=== PATIENT | male | born 1950 | race Caucasian/White ===

== ENCOUNTER 2023-10-13 09:25 | Emergency (ER) | payer MEDICARE, OTHER, SELFPAY ==
[2023-10-13 09:36] VITALS: BP 149/89
[2023-10-13 10:16] LABS: % Basophils 1.4 % (0-2); % Eosinophils 2.7 % (0-6); % Lymphocytes 27.6 % (20.5-51.1); % Monocytes 8.6 % (1.7-9.3); % Neutrophils 58.7 % (42.2-75.2); Absolute Basophils 0.1 10^3/uL (0-0.2); Absolute Eosinophils 0.2 10^3/uL (0-0.7); Absolute Immature Granulocytes 0.1 10^3/uL (0-0.05); Absolute Lymphocytes 1.9 10^3/uL (1.2-3.4); Absolute Monocytes 0.6 10^3/uL (0.1-0.6); Absolute Neutrophils 4.1 10^3/uL (1.4-6.5); Hematocrit 38.8 % (39.0-52.0); Hemoglobin 14.1 g/dL (13.0-18.0); Mean Corp Hgb Conc. 36.3 g/dL (33.0-37.0); Mean Corpuscular Hgb 31.8 pg (27.0-31.0); Mean Corpuscular Volume 87.4 fL (80.0-94.0); Mean Platelet Volume 8.1 fL (7.4-10.4); Nucleated Red Blood Cells % 0 % (-); Platelet Count 215 10^3/uL (130-400); Red Blood Cell Count 4.44 10^6/uL (4.70-6.10)
[2023-10-13 10:26] LABS: ALT (SGPT) 32 U/L (0-50); AST (SGOT) 30 U/L (17-59); Albumin 4.3 g/dl (3.5-5.0); Alkaline Phosphatase 88 U/L (38-126); Blood Urea Nitrogen 15 mg/dl (9-20); Calcium 9.1 mg/dl (8.4-10.2); Carbon Dioxide 24 mmol/L (22-30); Chloride 107 mmol/L (98-107); Glucose 112 mg/dl (70-99); Potassium 3.8 mmol/L (3.5-5.1); Sodium 136 mmol/L (135-145); Total Bilirubin 1.1 mg/dl (0.2-1.3); Total Protein 6.6 g/dl (6.3-8.2); eGFR > 60.00
[2023-10-13 10:33] LABS: Troponin I < 0.012 ng/ml
--- NOTE | 2023-10-13 10:42 | ED.GENMED ---
History of Present Illness
General
Chief Complaint: Chest Pain
Source: patient
Time Seen by Provider: 10/13/23 10:18
Travel History
Have you had any contact with someone who has COVID-19?: No
Do you have any symptoms of coronavirus? Fever > 100 degrees, chills, cough, shortness of breath, sore throat, loss of taste or smell, muscle aches, or headache?: No
History of Present Illness
History of Present Illness:
73-year-old male presents to the emergency room complaining of chest pain. Pain is located in the anterior chest as well as having some pain in the left arm. Patient states he does have chronic pain from neck and back issues. He is used to having
pain that radiates down his right arm to his neck issues. However over the past week he has been experiencing intermittent discomfort in the anterior chest which is somewhat different for him. Today the discomfort was quite significant. It became
severe at around 830. After did not go away over an hour he decided to come for evaluation. Pain improved while he was in the waiting room but seems to be increasing in intensity again at the time my evaluation. No associated nausea, diaphoresis
or shortness of breath. He does have a headache.
Past History
Past History
ED Past Medical History: CAD, HTN, Hypercholesterolemia and Other (OA)
ED Past Surgical History: Cardiac
Social History
Tobacco: Non-smoker
Alcohol: None
Personal:
Living: with family
Employment: Retired
Family History
Family History: Early CAD and CAD
Phy Exam
Physical Exam
Physical Exam:
General: Awake, Alert, Oriented X3. Appears somewhat uncomfortable
Vitals: unremarkable
Head: Atraumatic
Eyes: Pupils equal, EOMI
Throat: Airway intact, no exudates
Neck: Trachea midline
Lungs: Clear and equal b/l
Heart: Regular rate, no murmurs
Abd: Soft, Nontender, No pulsatile mass
Neuro: Nonfocal
Skin: Warm, dry, no rash
Extremities: pulses equal b/l, no edema
Scores
Heart Score for Chest Pain Patients
STEMI patient?: No
History: Moderately Suspicious
ECG: Normal
Age: >/= 65 years
Risk Factors: >/= 3 Risk Factors or History of CAD
Troponin: </= Normal Limit
Heart Score for Chest Pain Patients: 5
Heart Score Risk: 20.3% MACE over next 6 weeks
Course
Orders/Labs/Results
Orders:
Orders
10/13/23 09:26
Electrocardiogram (*1) Urgent
Reason for Study: Chest Pain
10/13/23 09:27
EKG- Treatment ONCE
10/13/23 09:59
Complete Blood Count/With Diff Urgent
Comprehensive Metabolic Panel Urgent
Troponin I Urgent
10/13/23 10:31
Electrocardiogram (*1) Urgent
Reason for Study: Chest Pain
EKG- Treatment ONCE
10/13/23 10:40
Acetaminophen [Tylenol] 1,000 mg PO NOW STA
10/13/23 11:43
Troponin I Urgent
10/13/23 13:13
CT Chest Pe Study Urgent
Comment:
Reason For Exam: chest pain
Ketorolac [Toradol] 15 mg IV NOW STA
Abnormal Lab Results
10/13/23
09:59
RBC 4.44 L 10^6/uL
(4.70-6.10)
Hct 38.8 L %
(39.0-52.0)
MCH 31.8 H pg
(27.0-31.0)
Abs Immat Gran (auto) 0.1 H 10^3/uL
(0-0.05)
Immature Gran % 1.0 H %
(0-0.5)
Glucose 112 H mg/dl
(70-99)
10/13/23 09:59
10/13/23 09:59
Vital Signs
Initial and Last Documented VS:
Initial Vital Signs
Pulse Resp BP Pulse Ox
57 20 149/89 95
10/13/23 09:36 10/13/23 09:36 10/13/23 09:36 10/13/23 09:36
Last Documented Vital Signs
Pulse Resp BP Pulse Ox
57 15 168/88 94
10/13/23 13:45 10/13/23 13:45 10/13/23 12:00 10/13/23 13:45
*Radiology
Radiology exam reviewed: radiology read reviewed
*Pulse Oximetry
Patient hypoxic: no
*EKG
Interpreted by ED Provider?: Yes
Interpretation: abnormal
Heart Rate: 58
Rate: bradycardiac
Rhythm: sinus
Interval: first degree heart block
QRS Pattern: normal QRS
Ischemia: no ischemia
*Assembling Fabricator Interpretation
Rate: bradycardiac
Rhythm: sinus
*Critical Care Note
Total Time (30-74mins, 75-104mins- exclusive of procedures): Not Applicable
ED Attending Note
-
Portions of this chart may have been created with voice recognition software.� Occasional wrong word or��sound alike� substitutions may have occurred due to the inherent limitations of voice recognition software.
Discharge Plan
Departure
Patient Disposition: Home (Routine Discharge)
Date of Disposition: 10/13/23
Time of Disposition: 15:34
Patient with high blood pressure during this ER visit?: Yes
Condition: Good
Discharge Problem:
Chest pain
Instructions: Chest Pain DCA Follow Up, BLOOD PRESSURE
Prescriptions:
No Action
nitroglycerin 0.4 MG tablet, sublingual
0.4 mg sublingual [id number] PRN (Reason: chest pain )
aspirin 81 MG tablet,delayed release (DR/EC)
81 mg PO HS
Hold Instructions: Resume on 02/09/23.
multivitamin with folic acid [Tab-A-Chel] 1 TABLET tablet
1 tab PO DAILY
sennosides [senna] 8.6 mg Tablet
34.4 mg PO DAILY
cetirizine [Zyrtec] 10 mg Tablet
10 mg PO HS
pantoprazole [Protonix] 40 mg Tablet,Delayed Release (Dr/Ec)
40 mg PO DAILY
losartan 25 mg Tablet
25 mg PO DAILY
clopidogrel 75 MG tablet
75 mg PO DAILY
Hold Instructions: Resume on 01/15/23.
atorvastatin 80 mg Tablet
80 mg PO QPM Qty: 30 11RF
carvedilol 6.25 mg Tablet
6.25 mg PO BID Qty: 60 11RF
ipratropium bromide 42 mcg (0.06 %) [place],Non-Aerosol
2 spray INTRANASAL BID
Bio Complete 3
2 tab PO PC
Super Digestive Ensyme
2 tab PO PC
mupirocin 2 % ointment
1 applic topical BID Qty: 1 0RF
tamsulosin 0.4 mg Capsule
0.4 mg PO HS
isosorbide mononitrate 60 mg tablet extended release 24 hr
30 mg PO DAILY
aspirin 325 mg Tablet
325 mg PO DAILY Qty: 1 0RF
docusate sodium 100 mg Capsule
100 mg PO BID Qty: 1 0RF
acetaminophen 325 mg Tablet
650 mg PO Q4HWA Qty: 2 0RF
magnesium hydroxide 400 mg/5 mL Suspension
30 ml PO DAILYPRN PRN (Reason: constipation) Qty: 30 0RF
oxycodone 5 mg tablet
5 - 10 mg PO Q6HPRN PRN (Reason: 1 tab moderate-2 tabs severe pain) Qty: 30 0RF
Rx Instructions:
Dx surgery
ongoing therapy
Post-op use
prednisone 10 mg tablet
40 mg PO TAPER Qty: 20 0RF
Rx Instructions:
4 TABS X 2 DAYS, 3 TABS X 2 DAYS, 2 TABS X 2 DAYS, 1 TAB X 2 DAYS, THEN STOP
baclofen 10 mg tablet
10 mg PO BID Qty: 20 0RF
escitalopram oxalate 20 MG tablet
20 mg PO DAILY
Patient Comments:
---said its not covered by insurance but needs to be on it,
Referrals:
Rasta Fraire MD [Family Provider] -
Interventions
Interventions:
*Risk Screen - Suicide Last Done: 10/13/23 09:36
*General Assessment Last Done: 10/13/23 09:36
*Neglect/Abuse Screening Last Done: 10/13/23 09:36
*ED COVID-19 Vaccine History Last Done: 10/13/23 11:03
ED- Cardiac Assessment Last Done: 10/13/23 11:02
[2023-10-13 10:46] VITALS: BP 150/96
[2023-10-13] MEDS: TYLENOL 1000 MG PO (10:58)
[2023-10-13 11:00] VITALS: BP 164/107
[2023-10-13 11:43] VITALS: BP 154/80
[2023-10-13 12:00] VITALS: BP 168/88
[2023-10-13 12:16] LABS: Troponin I < 0.012 ng/ml
[2023-10-13] MEDS: TORADOL 15 MG IV (13:24)
== END 2023-10-13 16:03 | disposition home or self-care (01) ==
LOC: EMR 09:25
PROVIDERS: Emergency Medicine; EMERGENCY PHYSICIAN Emergency Medicine; FAMILY PHYSICIAN Family Medicine
DX: R07.89 Other chest pain (principal); I10 Essential (primary) hypertension
CPT/HCPCS: 99285; 96374; 71275; 80053; 84484; 85025; 93005; Q9967

== ENCOUNTER 2023-11-27 11:58 | Emergency (ER) | payer MEDICARE, OTHER, SELFPAY ==
[2023-11-27 12:13] VITALS: BP 122/69
--- NOTE | 2023-11-27 13:33 | ED.GENMED ---
History of Present Illness
<BRITTANY Zapata - Last Filed: 11/27/23 21:03>
General
Chief Complaint: Fall
Source: patient
Exam Limitations: none
Time Seen by Provider: 11/27/23 12:47
Travel History
Have you had any contact with someone who has COVID-19?: No
Do you have any symptoms of coronavirus? Fever > 100 degrees, chills, cough, shortness of breath, sore throat, loss of taste or smell, muscle aches, or headache?: No
History of Present Illness
History of Present Illness:
73 yr. old male presents ER for evaluation of head injury. Patient reports around 10 AM he was walking in the basement tripped and fell hitting his head on concrete. He hit the right side of his head on concrete floor. He denies loss of
consciousness. He has been on Plavix but took last dose yesterday and held his dose today for upcoming procedure .
he has had a headache since injury has blurry vision from his right eye and feels off. He does complain of mild abrasions to his right forearm and right leg. His last tetanus was about 10 years ago. He does complain of discomfort to left wrist
and left shoulder.
Past History
<BRITTANY Zapata - Last Filed: 11/27/23 21:03>
Past History
ED Past Medical History: CAD, HTN, Hypercholesterolemia and Other (OA)
ED Past Surgical History: Cardiac
Social History
Tobacco: Non-smoker
Alcohol: None
Personal:
Living: with family
Employment: Retired
Family History
Family History: Early CAD and CAD
Review of Systems
<BRITTANY Zapata - Last Filed: 11/27/23 21:03>
Review of Systems
Allergies reviewed?: Yes
Other source history: family
All Other Systems: ROS reviewed and negative except as documented in HPI and ROS
Constitutional: Reports no symptoms
Respiratory: Reports no symptoms
Cardiac: Reports no symptoms
ABD/GI: Reports no symptoms
: Reports no symptoms
Musculoskeletal: Reports neck pain and other (left wrist /shoulder injury)
Skin: Reports no symptoms
Neurological: Reports no symptoms
Hematologic/Lymphatic: Reports no symptoms
Psychiatric: Reports no symptoms
Phy Exam
<BRITTANY Zapata - Last Filed: 11/27/23 21:03>
General Physical Exam
General Presentation: no apparent distress
General age: appears stated age
General Skin: warm and dry
General Habitus: normal
General Mental: alert
Eye Exam
Eye Exam: PERRL and EOMI
Eye Exam General: PERRL: bilateral and EOM intact: bilateral
Pupil Exam: Bilateral: round and reactive
Neurological Exam
Neurological Exam: alert and oriented x3
Musculoskeletal Exam
Musculoskeletal Exam: other (Small amount of erythema to forehead above right eye area no hematoma no bony cervical spine tenderness mildly tender to left anterior shoulder left wrist)
Skin Exam
Skin Exam: normal color, warm/dry and other (Small skin tear abrasion to right anterior tib-fib and right forearm)
Course
<BRITTANY Zapata - Last Filed: 11/27/23 21:03>
Orders/Labs/Results
Orders:
Orders
11/27/23 12:16
CT Cervical Spine W/o Iv Contr Urgent
Comment:
Reason For Exam: head injury, headache, visual changes
CT Head W/o Iv Contrast Urgent
Comment:
Reason For Exam: head injury, headache, visual changes
11/27/23 13:38
Wrist, Left 3 Views CR [CR Wrist - Left Min 3 Views] Urgent
Comment:
Reason For Exam: pain/trauma
11/27/23 13:39
Shoulder, Left, Trauma CR [CR Shoulder, Trauma - Left] Urgent
Comment:
Reason For Exam: trauma
11/27/23 13:41
Tetanus/Diphth/Acelpertussis [Adacel] 0.5 ml IM .ONCE ONE
Vital Signs
Initial and Last Documented VS:
Initial Vital Signs
Temp Pulse Resp BP Pulse Ox
97.9 F 56 18 122/69 95
11/27/23 12:13 11/27/23 12:13 11/27/23 12:13 11/27/23 12:13 11/27/23 12:13
Last Documented Vital Signs
Temp Pulse Resp BP Pulse Ox
97.9 F 60 18 155/78 96
11/27/23 12:13 11/27/23 17:13 11/27/23 17:13 11/27/23 17:13 11/27/23 17:13
Water Well Driller consulted with Physician
Water Well Driller consulted with physician?: Yes
Name of Physician Consulted: Rohan
<Min Madrigal, DO - Last Filed: 11/27/23 16:23>
Orders/Labs/Results
Orders:
Orders
11/27/23 12:16
CT Cervical Spine W/o Iv Contr Urgent
Comment:
Reason For Exam: head injury, headache, visual changes
CT Head W/o Iv Contrast Urgent
Comment:
Reason For Exam: head injury, headache, visual changes
11/27/23 13:38
Wrist, Left 3 Views CR [CR Wrist - Left Min 3 Views] Urgent
Comment:
Reason For Exam: pain/trauma
11/27/23 13:39
Shoulder, Left, Trauma CR [CR Shoulder, Trauma - Left] Urgent
Comment:
Reason For Exam: trauma
11/27/23 13:41
Tetanus/Diphth/Acelpertussis [Adacel] 0.5 ml IM .ONCE ONE
Vital Signs
Initial and Last Documented VS:
Initial Vital Signs
Temp Pulse Resp BP Pulse Ox
97.9 F 56 18 122/69 95
11/27/23 12:13 11/27/23 12:13 11/27/23 12:13 11/27/23 12:13 11/27/23 12:13
Last Documented Vital Signs
Temp Pulse Resp BP Pulse Ox
97.9 F 60 18 155/78 96
11/27/23 12:13 11/27/23 17:13 11/27/23 17:13 11/27/23 17:13 11/27/23 17:13
<BRITTANY Zapata - Last Filed: 11/27/23 21:03>
MDM/Problems Addressed
Differential Diagnosis Includes:
not limited to: head injury , intracranial hemorrhage shoulder sprain versus fracture abrasions
MDM/Problems Addressed:
73 yr old male presented to the ED for eval after a fall. Patient did hit his head was on Plavix but stopped it today because of the upcoming procedure. Patient presents to the ER complaining of feeling slightly foggy headache and blurry vision
from the center of his right eye. Patient presents awake alert no acute distress normal neurological exam. His visual acuity is normal there is no corneal abrasions or foreign body however he does describe still seeing slightly blurry vision from
the center vision of his right eye. He has no entrapment pupils equal round and reactive. Visual acuity left eye 20/25 right eye 20/25 both eyes 20/20. He had CAT scans done of head and cervical spine which were negative. He complained mild
shoulder and wrist discomfort which was negative. Patient examined by ED physician I spoke with Dr. Breanna Henriquez ophthalmology who states that send her vision may be related to macula patient will need outpatient follow-up with ophthalmology
does not need to be emergent. If he is unable to get in with his ophthalmology office next week patient is able to be seen by Dr. Henriquez patient given information.
Patient has been monitored here for quite some time in the ER and feels that this is improving however. He is nontoxic. He does ask for a prescription for lidocaine patches will send to pharmacy discussed close outpatient follow-up with his
public transit bus driver for ophthalmology given on referral and his family doctor
<BRITTANY Zapata - Last Filed: 11/27/23 21:03>
*Radiology
Radiology exam reviewed: radiology read reviewed
*Pulse Oximetry
Patient hypoxic: no
*Critical Care Note
Total Time (30-74mins, 75-104mins- exclusive of procedures): Not Applicable
ED Attending Note
<BRITTANY Zapata - Last Filed: 11/27/23 21:03>
-
Portions of this chart may have been created with voice recognition software.� Occasional wrong word or��sound alike� substitutions may have occurred due to the inherent limitations of voice recognition software.
<Min Madrigal DO - Last Filed: 11/27/23 16:23>
ED Attending Note
Patient seen and examined by attending physician: Yes
I performed the substantive portion of visit, reviewed & personally made and approve the management plan that is documented in note by myself or ANIYA.: Yes
ED Attending Note:
I have seen and evaluated the patient with a [id number] encounter. I have spoken to the advance practicer provider and involved in the medical history, the physical exam, medical decision making.
Evaluation and management service: agree unless noted differently below.
Results interpretation: agree unless noted differently below.
Focused HPI: 73-year-old male presenting with a trip and fall. Patient did land on his face. He is having blurry vision in his right eye. he describes the blurry vision as if wax was over his eye. he denies pain
Physical exam: Sitting in bed comfortably. Pupils equal reactive. No pain with eye movement or with pupil constriction. No field cut
Medical Decision Making: Will have BRIDGE MANAGER discussed case with ophthalmology. We discussed possibility of vitreous hemorrhage versus retinal detachment
Discharge Plan
Departure
Patient Disposition: Home (Routine Discharge)
Date of Disposition: 11/27/23
Time of Disposition: 16:39
Patient with high blood pressure during this ER visit?: No
Covid-19: Not Applicable
Discharge Problem:
Head injury, Visual disturbance
Instructions: Head Injury in Adults (DC)
Prescriptions:
New
lidocaine 5 % adhesive patch,medicated
1 patch topical DAILY PRN (Reason: pain') Qty: 30 0RF
No Action
nitroglycerin 0.4 MG tablet, sublingual
0.4 mg sublingual [id number] PRN (Reason: chest pain )
aspirin 81 MG tablet,delayed release (DR/EC)
81 mg PO HS
Hold Instructions: Resume on 02/09/23.
multivitamin with folic acid [Tab-A-Chel] 1 TABLET tablet
1 tab PO DAILY
sennosides [senna] 8.6 mg Tablet
34.4 mg PO DAILY
cetirizine [Zyrtec] 10 mg Tablet
10 mg PO HS
pantoprazole [Protonix] 40 mg Tablet,Delayed Release (Dr/Ec)
40 mg PO DAILY
losartan 25 mg Tablet
25 mg PO DAILY
clopidogrel 75 MG tablet
75 mg PO DAILY
Hold Instructions: Resume on 01/15/23.
atorvastatin 80 mg Tablet
80 mg PO QPM Qty: 30 11RF
carvedilol 6.25 mg Tablet
6.25 mg PO BID Qty: 60 11RF
ipratropium bromide 42 mcg (0.06 %) [place],Non-Aerosol
2 spray INTRANASAL BID
Bio Complete 3
2 tab PO PC
Super Digestive Ensyme
2 tab PO PC
mupirocin 2 % ointment
1 applic topical BID Qty: 1 0RF
tamsulosin 0.4 mg Capsule
0.4 mg PO HS
isosorbide mononitrate 60 mg tablet extended release 24 hr
30 mg PO DAILY
aspirin 325 mg Tablet
325 mg PO DAILY Qty: 1 0RF
docusate sodium 100 mg Capsule
100 mg PO BID Qty: 1 0RF
acetaminophen 325 mg Tablet
650 mg PO Q4HWA Qty: 2 0RF
magnesium hydroxide 400 mg/5 mL Suspension
30 ml PO DAILYPRN PRN (Reason: constipation) Qty: 30 0RF
oxycodone 5 mg tablet
5 - 10 mg PO Q6HPRN PRN (Reason: 1 tab moderate-2 tabs severe pain) Qty: 30 0RF
Rx Instructions:
Dx surgery
ongoing therapy
Post-op use
prednisone 10 mg tablet
40 mg PO TAPER Qty: 20 0RF
Rx Instructions:
4 TABS X 2 DAYS, 3 TABS X 2 DAYS, 2 TABS X 2 DAYS, 1 TAB X 2 DAYS, THEN STOP
baclofen 10 mg tablet
10 mg PO BID Qty: 20 0RF
escitalopram oxalate 20 MG tablet
20 mg PO DAILY
Patient Comments:
---said its not covered by insurance but needs to be on it,
Referrals:
Breanna Henriquez MD [Active] -
Lucía Owens MD [Family Provider] -
Activity Restrictions/Additional Instructions:
As discussed follow-up with your family doctor the next several days for reevaluation of your symptoms. May take Tylenol for, headaches. A prescription for lidocaine patches was sent to your pharmacy. Also for a further evaluation of your visual
disturbance of your right eye please follow-up with your public transit bus driver. If you cannot follow-up with them next week please call our public transit bus driver on-call, see information above for phone number. It is important that you be seen by
ophthalmology next week. Return however to the ER if any worsening of symptoms.
Interventions
Interventions:
*ED COVID-19 Vaccine History Last Done: 11/27/23 12:13
*Nursing Disposition Last Done: 11/27/23 17:17
ED-Musculoskeletal Assessment Last Done: 11/27/23 15:00
ED- Neurological Assessment Last Done: 11/27/23 15:00
ED-Skin Assessment Last Done: 11/27/23 15:00
Discharge Date and Time
Discharge Date/Time: 11/27/23 17:18
Print Language: THAI
[2023-11-27] MEDS: ADACEL 0.5 ML IM (14:31)
[2023-11-27 17:13] VITALS: BP 155/78
== END 2023-11-27 17:18 | disposition home or self-care (01) ==
LOC: EMR 11:58
PROVIDERS: EMERGENCY PHYSICIAN Student in an Organized Health Care Education/Training Program; FAMILY PHYSICIAN Family Medicine
DX: S09.90XA Unspecified injury of head, initial encounter (principal); H53.8 Other visual disturbances; S50.811A Abrasion of right forearm, initial encounter; S80.811A Abrasion, right lower leg, initial encounter; M54.2 Cervicalgia; M25.532 Pain in left wrist; M25.512 Pain in left shoulder; G44.309 Post-traumatic headache, unspecified, not intractable; W01.0XXA Fall on same level from slipping, tripping and stumbling without subsequent striking against object, initial encounter; Y93.01 Activity, walking, marching and hiking; I25.10 Atherosclerotic heart disease of native coronary artery without angina pectoris; I10 Essential (primary) hypertension; E78.00 Pure hypercholesterolemia, unspecified; M19.90 Unspecified osteoarthritis, unspecified site; Z79.02 Long term (current) use of antithrombotics/antiplatelets; Z88.5 Allergy status to narcotic agent
CPT/HCPCS: 99284; 90471; 70450; 72125; 73030; 73110; 90715

== ENCOUNTER 2025-05-19 14:07 | Emergency (ER) | payer MEDICARE, OTHER, SELFPAY ==
[2025-05-19 14:18] VITALS: BP 132/86
[2025-05-19 14:53] LABS: Hematocrit 44.2 % (39.0-52.0); Hemoglobin 14.7 g/dL (13.0-18.0); Mean Corp Hgb Conc. 33.3 g/dL (33.0-37.0); Mean Corpuscular Volume 95.5 fL (80.0-94.0); Nucleated Red Blood Cells % 0 % (-); Platelet Count 181 10^3/uL (130-400); Red Cell Dist. Width 13.5 % (11.5-14.5)
[2025-05-19 15:08] LABS: ALT (SGPT) 41 U/L (0-50); AST (SGOT) 32 U/L (17-59); Albumin 4.5 g/dl (3.5-5.0); Alkaline Phosphatase 73 U/L (38-126); Blood Urea Nitrogen 21 mg/dl (9-20); Calcium 9.4 mg/dl (8.4-10.2); Carbon Dioxide 25 mmol/L (22-30); Chloride 107 mmol/L (98-107); Glucose 106 mg/dl (70-99); Potassium 4.3 mmol/L (3.5-5.1); Sodium 139 mmol/L (135-145); Total Protein 6.9 g/dl (6.3-8.2); eGFR > 60.00
--- NOTE | 2025-05-19 17:25 | ED.GENMED ---
History of Present Illness
General
Chief Complaint: Musculo-Skeletal Complaint
Source: patient
Exam Limitations: none
Time Seen by Provider: 05/19/25 16:58
History of Present Illness
History of Present Illness:
74-year-old male on aspirin and Plavix presents with new right foot drop over the past 2 to 3 days with throbbing headache and occasional nosebleeds. He also notes bruising in places that he does not recall having trauma. No chest pain or
shortness of breath. No fever. He does note about 2 weeks ago he had a circular rash on his right arm that was thought to be a fungal infection. He was prescribed a cream and it went away.
Past History
Past History
ED Past Medical History: CAD, HTN, Hypercholesterolemia and Other (OA)
ED Past Surgical History: Cardiac
Social History
Tobacco: Non-smoker
Alcohol: None
Personal:
Living: with family
Employment: Retired
Family History
Family History: Early CAD and CAD
Phy Exam
Physical Exam
Physical Exam:
General: Well-appearing male no acute respiratory distress
HEENT: Normal cephalic atraumatic face is symmetric bilateral nose cavities inspected and there is friable membranes over the septal wall bilaterally with evidence of bleeding recently bilaterally
Heart: Regular rate and rhythm
Lungs: Clear no wheeze
Neurologic exam: Alert and oriented x 3 face is symmetric no drift on exam. There is a foot drop on the right side.
Vascular: Dopplerable pulses to bilateral feet however the right leg does feel somewhat colder to the touch than the left
Extremities: No cyanosis
Course
Orders/Labs/Results
Orders:
Orders
05/19/25 14:34
Complete Blood Count/With Diff Urgent
Comprehensive Metabolic Panel Urgent
Lyme Progressive Urgent
Comment: ADD ON
05/19/25 17:24
Add On- LAB Urgent
Tests Added?: lyme progressive
05/19/25 17:25
CT Head W/o Iv Contrast Urgent
Comment:
Reason For Exam: headache, new right foot drop
05/19/25 17:28
Electrocardiogram (*1) Urgent
Reason for Study: TIA/Stroke
EKG- Treatment ONCE
05/19/25 18:23
Protime/PTT Urgent
05/19/25 19:54
Ortho Boot Right- Treatment ONCE
Short or tall?: Tall
05/19/25 21:19
Tetracaine HCl [Tetracaine 0.5% Ophthalmic Solution] 1 drop .ROUTE .STK-MED ONE
Abnormal Lab Results
05/19/25
14:34
RBC 4.63 L 10^6/uL
(4.70-6.10)
MCV 95.5 H fL
(80.0-94.0)
MCH 31.7 H pg
(27.0-31.0)
BUN 21 H mg/dl
(9-20)
Glucose 106 H mg/dl
(70-99)
05/19/25 14:34
05/19/25 14:34
Vital Signs
Initial and Last Documented VS:
Initial Vital Signs
Temp Pulse Resp BP Pulse Ox
97.6 F 62 18 132/86 97
05/19/25 14:18 05/19/25 14:18 05/19/25 14:18 05/19/25 14:18 05/19/25 14:18
Last Documented Vital Signs
Temp Pulse Resp BP Pulse Ox
97.6 F 62 16 132/86 97
05/19/25 14:18 05/19/25 18:15 05/19/25 18:15 05/19/25 14:18 05/19/25 18:15
MDM/Problems Addressed
Differential Diagnosis Includes:
Patient has complaints of new onset right foot drop over the past 2 to 3 days. There is also a throbbing headache. Consider peripheral neuropathy versus radiculopathy. Less likely Guillain-Kenny� or MS
Order CT of the head and check labs. Lyme test ordered. Patient denies any recent vaccines.
*Pulse Oximetry
SaO2: 97
Patient hypoxic: no
*Critical Care Note
Total Time (30-74mins, 75-104mins- exclusive of procedures): Not Applicable
Update Note
Update Note:
CT head negative. Discussed with emergency room attending saw the patient as well. Nothing emergent on today's workup he does have a foot drop however this is been ongoing for several days. Will place in a boot to help him ambulate and advise
follow-up with doctor for further evaluation
Patient did describe discomfort in his right eye. The pressure was checked with the Evens-Pen. Pressure averaged 15 mmHg in the right eye which is normal
ED Attending Note
-
Portions of this chart may have been created with voice recognition software.� Occasional wrong word or��sound alike� substitutions may have occurred due to the inherent limitations of voice recognition software.
Discharge Plan
Departure
Patient Disposition: Home (Routine Discharge)
Date of Disposition: 05/19/25
Time of Disposition: 21:12
Patient with high blood pressure during this ER visit?: No
Discharge Problem:
Foot drop
Instructions: Foot Drop
Prescriptions:
No Action
nitroglycerin 0.4 MG tablet, sublingual
0.4 mg sublingual [id number] PRN (Reason: chest pain )
aspirin 81 MG tablet,delayed release (DR/EC)
81 mg PO HS
multivitamin with folic acid [Tab-A-Chel] 1 TABLET tablet
1 tab PO DAILY
sennosides [senna] 8.6 mg Tablet
34.4 mg PO DAILY
cetirizine [Zyrtec] 10 mg Tablet
10 mg PO HS
pantoprazole [Protonix] 40 mg Tablet,Delayed Release (Dr/Ec)
40 mg PO DAILY
losartan 25 mg Tablet
25 mg PO DAILY
clopidogrel 75 MG tablet
75 mg PO DAILY
atorvastatin 80 mg Tablet
80 mg PO QPM Qty: 30 11RF
carvedilol 6.25 mg Tablet
6.25 mg PO BID Qty: 60 11RF
ipratropium bromide 42 mcg (0.06 %) [place],Non-Aerosol
2 spray INTRANASAL BID
Bio Complete 3
2 tab PO PC
Super Digestive Ensyme
2 tab PO PC
mupirocin 2 % ointment
1 applic topical BID Qty: 1 0RF
tamsulosin 0.4 mg Capsule
0.4 mg PO HS
isosorbide mononitrate 60 mg tablet extended release 24 hr
30 mg PO DAILY
aspirin 325 mg Tablet
325 mg PO DAILY Qty: 1 0RF
docusate sodium 100 mg Capsule
100 mg PO BID Qty: 1 0RF
acetaminophen 325 mg Tablet
650 mg PO Q4HWA Qty: 2 0RF
magnesium hydroxide 400 mg/5 mL Suspension
30 ml PO DAILYPRN PRN (Reason: constipation) Qty: 30 0RF
oxycodone 5 mg tablet
5 - 10 mg PO Q6HPRN PRN (Reason: 1 tab moderate-2 tabs severe pain) Qty: 30 0RF
Rx Instructions:
Dx surgery
ongoing therapy
Post-op use
prednisone 10 mg tablet
40 mg PO TAPER Qty: 20 0RF
Rx Instructions:
4 TABS X 2 DAYS, 3 TABS X 2 DAYS, 2 TABS X 2 DAYS, 1 TAB X 2 DAYS, THEN STOP
baclofen 10 mg tablet
10 mg PO BID Qty: 20 0RF
lidocaine 5 % adhesive patch,medicated
1 patch topical DAILY PRN (Reason: pain') Qty: 30 0RF
escitalopram oxalate 20 MG tablet
20 mg PO DAILY
Patient Comments:
---said its not covered by insurance but needs to be on it,
Referrals:
Lucía Owens MD [Family Provider, Family Practice]
Activity Restrictions/Additional Instructions:
Use of boot for ambulation. Follow-up with your doctor for further evaluation. Return if needed otherwise
Interventions
Interventions:
*Risk Screen - Suicide Last Done: 05/19/25 14:21
*Neglect/Abuse Screening Last Done: 05/19/25 14:21
*ED COVID-19 Vaccine History Last Done: 05/19/25 17:46
*ED Influenza Vaccine History Last Done: 05/19/25 17:46
ED-Musculoskeletal Assessment Last Done: 05/19/25 17:45
Discharge Date and Time
Print Language: HUNGARIAN
[2025-05-19 18:41] LABS: INR 1.01; PT 13.6 Sec (11.4-14.6)
[2025-05-19 18:42] LABS: APTT 30.4 Sec (23.4-35.0)
[2025-05-19 21:34] VITALS: BP 135/80
[2025-05-22 14:50] LABS: Lyme Antibody Screen, EIA Negative (Negative)
== END 2025-05-19 21:40 | disposition home or self-care (01) ==
LOC: EMR 14:07
PROVIDERS: Student in an Organized Health Care Education/Training Program; EMERGENCY PHYSICIAN Emergency Medicine; FAMILY PHYSICIAN Family Medicine
DX: M21.371 Foot drop, right foot (principal); H57.11 Ocular pain, right eye; R04.0 Epistaxis; R51.9 Headache, unspecified; Z79.02 Long term (current) use of antithrombotics/antiplatelets; Z79.82 Long term (current) use of aspirin; I25.10 Atherosclerotic heart disease of native coronary artery without angina pectoris; I10 Essential (primary) hypertension; E78.00 Pure hypercholesterolemia, unspecified
CPT/HCPCS: 99284; 70450; 80053; 85025; 85610; 85730; 86618; 93005

== ENCOUNTER → 2025-07-03 10:50 | Outpatient (REF) | payer MEDICARE, OTHER, SELFPAY | LOC: EMG 10:50 | PROVIDERS: ATTENDING PHYSICIAN Physical Medicine & Rehabilitation; FAMILY PHYSICIAN Family Medicine | DX: M54.16 Radiculopathy, lumbar region (principal) | CPT/HCPCS: 95886; 95910 ==

== ENCOUNTER → 2025-07-13 16:05 | Outpatient (REF) | payer MEDICARE, OTHER, SELFPAY | LOC: PAVMRI 16:05 | PROVIDERS: ATTENDING PHYSICIAN Physical Medicine & Rehabilitation | DX: M54.16 Radiculopathy, lumbar region (principal) | CPT/HCPCS: 72148 ==